=== PATIENT | male | born 1955 | race Caucasian/White ===

== ENCOUNTER 2019-04-12 11:16 | Inpatient (IN) | payer OTHER ==
[~2019-04-12] VITALS: Ht 167.6 cm; Wt 70.5 kg
--- NOTE | ~2019-04-12 | EKG ---
[place], [place] ELECTROCARDIOGRAM REPORT NAME: SANDEEP RODRÍGUEZ UNIT #: [id number] ROOM: 411 DOCTOR: MITCH DRAFT REPORT BIRTHDATE: [birth year] [facility] Test Date: 2019-04-12 Test Time: 11:48:53 Pat Name: SANDEEP RODRÍGUEZ Department: Room: 411 Gender: M Security Systems Administrator: : [id number] Requested By: TAHIRA BARAJAS Order Number: [id number] Reading MD: Donald Zabala MD Measurements Intervals [place] Rate: 58 P: -42 DC: 193 QRS: 39 QRSD: 146 T: 33 QT: 462 QTc: 454 Interpretive Statements Sinus rhythm Probable left atrial enlargement Right bundle branch block Electronically Signed On 04-13-2019 4:27:00 PDT by Donald Zabala MD CM:EKGRPT:ELECTROCARDIOGRAM REPORT [id number] TAHIRA VALENTIN DRAFT REPORT TAHIRA BARAJAS DO
[2019-04-12 11:21] VITALS: BP 158/98
[2019-04-12 11:36] LABS: BILIRUBIN NEGATIVE (NEGATIVE); BLOOD TRACE-INTACT (NEGATIVE); CLARITY SL CLOUDY (CLEAR); COLOR YELLOW (YELLOW); GLUCOSE NEGATIVE (NEGATIVE); KETONE NEGATIVE (NEGATIVE); LEUKO ESTERASE TRACE (NEGATIVE); NITRITE NEGATIVE (NEGATIVE); PH 6.5 (5.0-9.0); UROBILINOGEN 0.2 E.U./dl (0.2-1.0)
[2019-04-12 11:44] LABS: BASO % 0.6 % (0.0-1.0); HEMATOCRIT 41.8 % (42.0-52.0); HEMOGLOBIN 14.6 g/dl (14.0-18.0); LYMPH # 0.9 10*3/uL (1.3-4.4); LYMPH % 12.9 % (27.0-41.0); MEAN CELL VOLUME 99.1 fl (80.0-94.0); MEAN CORPUSCULAR HGB 34.6 pg (27.0-31.0); MEAN CORPUSCULAR HGB CONC 34.9 g/dl (33.0-37.0); MEAN PLATELET VOLUME 8.9 fl (9.6-12.3); MONO # 0.6 10*3/uL (0.1-1.0); MONO % 7.6 % (3.0-9.0); NEUT # 5.7 10*3/uL (2.3-7.9); NEUT % 78.6 % (47.0-73.0); PLATELET COUNT AUTOMATED 151 10*3/uL (130-400); RED BLOOD COUNT 4.22 10*6/uL (4.50-5.90); RED CELL DISTRI WIDTH 13.3 % (0-14.5); WHITE BLOOD COUNT 7.2 10*3/uL (4.8-10.8)
[2019-04-12 11:44] LABS: URINE AMPHETAMINES < 1000 (1000ng/ml); URINE BARBITURATES < 200 (200ng/ml); URINE BENZODIAZEPINES < 200 (200ng/ml); URINE CANNABINOIDS (THC) < 50 (50ng/ml); URINE COCAINE < 300 (300ng/ml); URINE METHADONE < 300 (300ng/ml); URINE OPIATES < 300 (300ng/ml)
[2019-04-12 11:45] LABS: URINE PHENCYCLIDINE < 25 (25ng/ml)
[2019-04-12 11:55] LABS: ACT PARTIAL THROMBO TIME 24.9 SECONDS (20.0-32.1); INTERNATIONAL NORM RATIO 0.9 (2.0-3.5)
[2019-04-12 12:00] VITALS: BP 156/94
[2019-04-12 12:00] LABS: ALBUMIN 4.2 gm/dl (3.1-4.5); ALKALINE PHOSPHATASE 69 U/L (45-117); BUN 9 mg/dl (7-24); CHLORIDE 102 mmol/L (98-107); CREATININE 0.93 mg/dL (0.70-1.30); POTASSIUM 4.1 mmol/L (3.5-5.1); SGOT/AST 61 IU/L (3-35); SGPT/ALT 43 U/L (12-78); SODIUM 135 mmol/L (136-145); TOTAL PROTEIN 8.2 gm/dL (6.4-8.2)
[2019-04-12 12:01] LABS: ACETAMINOPHEN (TYLENOL) < 5.0 ug/ml (10-30); ETHYL ALCOHOL < 3.0 mg/dl (<3); TROPONIN I < 0.015 ng/ml (<0.045)
--- NOTE | 2019-04-12 12:50 | NUR ---
BED ASSIGNED 411-2. DELAY IN TRANSPORT TO FLOOR DUE TO ONGOING INTERVIEW BY NEW [facility] STAFF BEHIND CLOSED DOOR.
[2019-04-12 13:00] VITALS: BP 161/85
--- NOTE | 2019-04-12 13:00 | NUR ---
A 63, admitted to [facility], under the services of ROVERTO Laurent DO with a diagnosis of ALCOHOL WITHDRAWL. Chief complaint is SENT FROM WORK WITH TREMORS D/T NO ALCOHOL INTAKE. Patient arrived via stretcher from ER. Monitor applied. Initial assessment completed. Vital signs taken and recorded. ROVERTO LAURENT DO notified of admission to the unit. Orders received. See assessment for past medical history, medications and allergies. Patient and/or family oriented to unit. [facility] visitation policy reviewed. TIFFANY RIVERA PEDIATRIC ASSOCIATE HERE TO TALK WITH PATIENT & RISHABHMOE ZAPIEN
[2019-04-12] MEDS ORDERED: METOPROLOL TART50 M1 PO (13:16)
--- NOTE | 2019-04-12 13:23 | NUR ---
Patient meets [facility] criteria. CIWA=24. Patient wants to attend AA meetings when he gets discharged from the hospital. JOEL Rick Clinical Pharmacy Coordinator
--- NOTE | 2019-04-12 15:45 | NUR ---
DOZING SINCE MEDICATED
[2019-04-12 16:00] VITALS: BP 118/56
--- NOTE | 2019-04-12 17:16 | NUR ---
ROUTINE PO ATIVAN & PRN BENTYL GIVEN. PT AROUSED EASILY BUT TREMORS STILL VISIBLE BUT LESS THAN ON ADMISSION
[2019-04-12 20:00] VITALS: BP 120/64
--- NOTE | 2019-04-12 23:19 | NUR ---
24 HR chart check completed.
[2019-04-13] VITALS: BP 124/70
--- NOTE | 2019-04-13 02:44 | NUR ---
PRN ROBAXIN AND VISTARIL GIVEN FOR PT COMPLAINTS OF MUSCLE ACHES AND ANXIETY. CALL LIGHT WITHIN REACH, WILL MONITOR
--- NOTE | 2019-04-13 03:30 | NUR ---
PRN MEDICATION APPEARS EFFECTIVE, PT SLEEPING
[2019-04-13 06:18] LABS: BASO % 0.8 % (0.0-1.0); EOS # 0.1 10*3/uL (0.0-0.4); EOS % 1.6 % (1.0-4.0); HEMATOCRIT 40.9 % (42.0-52.0); HEMOGLOBIN 13.8 g/dl (14.0-18.0); LYMPH # 2.2 10*3/uL (1.3-4.4); LYMPH % 43.2 % (27.0-41.0); MEAN CORPUSCULAR HGB 34.1 pg (27.0-31.0); MEAN CORPUSCULAR HGB CONC 33.7 g/dl (33.0-37.0); MEAN PLATELET VOLUME 9.6 fl (9.6-12.3); MONO # 0.5 10*3/uL (0.1-1.0); MONO % 8.7 % (3.0-9.0); NEUT # 2.3 10*3/uL (2.3-7.9); NEUT % 45.3 % (47.0-73.0); PLATELET COUNT AUTOMATED 139 10*3/uL (130-400); RED BLOOD COUNT 4.05 10*6/uL (4.50-5.90); RED CELL DISTRI WIDTH 13.4 % (0-14.5); WHITE BLOOD COUNT 5.2 10*3/uL (4.8-10.8)
[2019-04-13 06:55] LABS: CHLORIDE 105 mmol/L (98-107); POTASSIUM 3.7 mmol/L (3.5-5.1); SODIUM 139 mmol/L (136-145)
[2019-04-13 07:08] LABS: ALBUMIN 3.3 gm/dl (3.1-4.5); ALKALINE PHOSPHATASE 60 U/L (45-117); BUN 10 mg/dl (7-24); CHOLESTEROL 185 mg/dL (<200); FREE T4 0.84 ng/dl (0.76-1.46); HDL CHOLESTEROL 87 mg/dl (40-60); LDL CHOLESTEROL 88 mg/dL (9-159); PHOSPHOROUS 3.7 mg/dL (2.5-4.9); SGOT/AST 39 IU/L (3-35); SGPT/ALT 33 U/L (12-78); TOTAL PROTEIN 6.8 gm/dL (6.4-8.2); TRIGLYCERIDES 49 mg/dl (<150); VLDL CHOLESTEROL 10 mg/dL (6-40)
[2019-04-13 08:00] VITALS: BP 142/78
--- NOTE | 2019-04-13 10:55 | NUR ---
PT REQUESTED AND WAS MEDICATED WITH NICOTROL INHALER. CALL LIGHT IN REACH. WILL MONITOR
[2019-04-13 12:00] VITALS: BP 127/78
--- NOTE | 2019-04-13 12:41 | NUR ---
[place] STAFF SPOKE WITH PATIENT ABOUT REFERRAL OPTIONS. PATIENT AGREED ON COUNSELING. PATIENT STATED THAT HE WOULD LIKE TO GO TO [facility] IN [place] FOR HIS AFTERCARE PLAN. [place] STAFF WILL SET UP INITIAL APPOINTMENT FOR HIM. [place] STAFF WILL FOLLOW BACK UP WITH PATIENT. TEX GOLDBERG BA, PASSENGER BRAKEMAN
--- NOTE | 2019-04-13 13:12 | NUR ---
PATIENT'S APPOINTMENT FOR [facility] IN [place] IS SCHEDULED FOR April AT 5PM. [place] STAFF WILL REVIEW APPOINTMENT TIME WITH PATIENT. TEX GOLDBERG BA,INSTRUCTIONAL DESIGN TECHNOLOGIST
--- NOTE | 2019-04-13 13:16 | NUR ---
PT REQUESTED AND WAS MEDICATED WITH ROBAXIN FOR C/O MUSCLE ACHES AND VISTIRIL FOR C/O ANXIETY. CALL LIGHT IN REACH. WILL MONITOR
--- NOTE | 2019-04-13 13:51 | NUR ---
PT REQUESTED NICOINE GUM. THIS NURSE NOTIFIED PT THAT ONLY ONE NICOTINE PRODUCT CAN BE USED AT A TIME. PT STATES UNDERSTANDING AND REQUESTS THE GUM. NICOTINE INHALER AND CARTRIDGES COLLECTED AND PLACE DIN LOCKED WALLAROO. NICTINE GUM GIVEN PER REQUEST/ORDERS. CALL LIGHT IN REACH. WILL MONITOR.
[2019-04-13 16:00] VITALS: BP 160/78
[2019-04-13 20:00] VITALS: BP 177/85
[2019-04-14] VITALS: BP 176/88
--- NOTE | 2019-04-14 01:45 | NUR ---
IM GEODON GIVEN DUE TO PATIENT BECOMING INCREASINGLY AGITATED AND AGGRESSIVE BEHAVIOR. PATIENT WANDERING OUT TO THE HALLWAY AND REFUSING TO STAY IN ROOM.
--- NOTE | 2019-04-14 02:05 | NUR ---
CODE ARDEN CALLED. PATIENT BECOMING AGITATED AND REFUSING TO GET BACK INTO BED AFTER MULTIPLE ATTEMPTS. PATIENT UNSTEADY GAIT BECOMING INCREASINGLY WORSE. PATIENT USING VULGAR LANGUAGE TOWARD THE STAFF AND ATTEMPTING TO KICK AND HIT STAFF.
--- NOTE | 2019-04-14 02:19 | NUR ---
PATIENT PLACED IN SOFT WRIST RESTRAINTS TO PREVENT SELF HARM AND HARM TO OTHERS.
--- NOTE | 2019-04-14 02:25 | NUR ---
IV ATIVAN GIVEN FOR WORSENING TREMORS AND AGITATION. WILL CONTINUE TO MONITOR AND REASSESS.
--- NOTE | 2019-04-14 03:18 | NUR ---
IV ATIVAN GIVEN FOR INCREASED AGITATION AND TREMORS. WILL CONTINUE TO MONITOR AND REASSESS.
--- NOTE | 2019-04-14 03:19 | NUR ---
VISUAL AND AUDITORY HALLUCINATIONS NOTED UPON ASSESSMENT.
--- NOTE | 2019-04-14 05:20 | NUR ---
IV ATIVAN GIVEN. PATIENT APPEARS TO BE SLIGHTLY IMPROVING. TREMULOUS BEHAVIOR HAS DIMINISHED SLIGHTLY. WILL CONTINUE TO MONITOR.
--- NOTE | 2019-04-14 07:15 | NUR ---
PT MEDICATED WITH ATIVAN IV FOR AGITATION AND HALLUCINATIONS. PT RESTRAINED PER ORDERS. FINE TREMOR NOTED. 1:1 SITTER AT BEDSIDE. RESP EASY AND NONLABORED. WILL MONITOR
--- NOTE | 2019-04-14 08:11 | NUR ---
1MG OF IV ATIVAN GIVEN FOR AGGITATION AND ANGRESSION,HALLUCINATIONS
--- NOTE | 2019-04-14 08:32 | NUR ---
PATIENT CLEANED UP AND PULLED UP IN BED. ATIVAN GIVEN. PATIENT IS STILL AGITATED AND HALLUCINATING REACHING FOR THINGS THAT ARE NOT THERE. SKIN IS CLEAN DRY AND INTACT. PATIENT IS RESTING INTERMITTENTLY FOR SHORT PERIODS. CONTINUE TO MONITOR.
--- NOTE | 2019-04-14 09:50 | NUR ---
24 HR chart check completed.
--- NOTE | 2019-04-14 10:09 | NUR ---
ORDERS RECEIVED TO TRANSFER TO ICU. PT TRANSPORTED WITH BELONGINGS. REPORT GIVEN TO JAMES CRM SPECIALIST. , ADIN CALLED AND NOTIFIED OF PT STATUS AND TRANSFER TO ICU. SHE STATES UNDERSTANDING.
--- NOTE | 2019-04-14 10:15 | NUR ---
Patient displaying withdrawal symptoms, including: irritability, anxiousness, restlessness and agitation, complicated by impulsive behavior. Patient scores a 5 on the withdrawal scale. Scheduled/PRN medications provided, doctor notified of patient's agitation and AMA potential. Will continue to monitor medication effectiveness.
--- NOTE | 2019-04-14 10:44 | NUR ---
Patient resting. Responding to scheduled medications with fewer complaints of pain and anxiety.
[2019-04-14 12:00] VITALS: BP 151/81
[2019-04-14 16:00] VITALS: BP 143/83
--- NOTE | 2019-04-14 19:30 | NUR ---
ASSUMED CARE OF PATIENT AT THIS TIME. PATIENT RESTING IN HIS BED, DISORIENTED. PATIENT'S VERBAL RESPONSES ARE SLURRED AND INAPPROPRIATE. DROWSY. VITAL SIGNS STABLE. BRADYCARDIC AT TIMES, PULSE OX 99%, BUT DESATS TO 85% WHILE SLEEPING AT TIMES. 1:1 SITFLAQUITO RAJPUT, AT PATIENT'S BEDSIDE. NO S/S OF DISTRESS AT THIS TIME. WITHIN VISION OF RN AT DESK.
[2019-04-14 19:59] VITALS: BP 147/80
--- NOTE | 2019-04-14 20:23 | NUR ---
PATIENT STILL IN 3PT RESTRAINTS. CIRCULATION ASSESSED. CAN FIT 2 FINGERS UNDER EACH RESTRAINT. REPOSITIONED. NO S/S OF DISTRESS. HEAD OF BED ELEVATED.
--- NOTE | 2019-04-14 21:14 | NUR ---
PT WAS INCONTINENT. COMPLETE BATH AND BED LINEN CHANGE DONE. PT VERY UNCOOPERATIVE AND TREMULOUS. IV ATIVAN ORDERED.
--- NOTE | 2019-04-14 22:22 | NUR ---
NICOTINE PATCH PLACED ON PATIENT'S LEFT SHOULDER AT THIS TIME PER 'S REQUEST.
--- NOTE | 2019-04-14 22:25 | NUR ---
IV ATIVAN EFFECTIVE. PATIENT RESTING COMFORTABLY ON HIS BACK IN BED. NO S/S OF DISTRESS. VITALS STABLE. WITHIN SIGHT OF NURSING STAFF. 1:1 AT BEDSIDE.
--- NOTE | 2019-04-14 23:34 | NUR ---
PATIENT DROWSY AND HARD TO AROUSE. HOLDING PHENOBARBITAL AT THIS TIME.
[2019-04-15 00:09] VITALS: BP 151/79
--- NOTE | 2019-04-15 02:27 | NUR ---
PATIENT RESTING IN BED. NO S/S OF DISTRESS. PATIENT COUGHING ON OCCASION. 1:1 AT BEDSIDE. WITHIN SIGHT OF NURSE.
[2019-04-15 03:47] VITALS: BP 122/62
--- NOTE | 2019-04-15 04:36 | NUR ---
PATIENT'S BRIEF CHANGED FOR URINE. TOLERATED WELL. PATIENT STILL DISORIENTED. REPOSITIONED FOR COMFORT WITH HOB AT 30 DEGREES. WITHIN SIGHT OF NURSING, 1:1 AT BEDSIDE.
--- NOTE | 2019-04-15 04:40 | NUR ---
CALLED DR KAPLAN TO LET HIM KNOW THAT I HELD THE PATIET'S PHENOBARBITAL LAST NIGHT AT MIDNIGHT AND HIS LOPRESSOR AT 2200 DUE TO LOW HEART RATE IN THE 40'S. IT WAS DOCUMENTED ON THE EMAR WELL. WANTED TO UPDATE HIM THAT THE PATIENT'S HEART RATE WAS STILL IN THE 40'S WITH A NEW DOSE OF PHENO COMING UP AT 0600. DR KAPLAN STATES TO HOLD THAT DOSE WELL D/T THE BRADYCARDIA. ALSO EXPRESSED TO HIM THAT THE PATIENT TOOK A SIP OF AUTUMN GONZÁLEZ THIS AM AND ASPIRATED IT INTO HIS LUNGS. IMMEDIATELY COUGHING. STATES HE WILL RELAY THAT TO THE DAY TEAM AND WILL "FIGURE THIS OUT." PATIENT IS CURRENTLY REST IN HIS BED, RESP EASY. PATIENT NOT COOPERATING WHEN INSTRUCTED TO TAKE A DEEP BREATH, SO LUNGS SOUNDS CANNOT BE DETERMINED ACCURATELY. PULSE OX SITTING AT 96% ON RA. NO S/S OF DISTRESS. REQUESTED THAT MAYBE WE SHOULD EVALUATE THE PATIENT'S SWALLOWING WITH A SPEECH CONSULT. WILL PASS THIS INFORMATION ON TO DAYLIGHT NURSE DURING SHIFT CHANGE. PATIENT WITHIN SIGHT OF RN AT DESK AND 1:1 AT BEDSIDE.
[2019-04-15 08:00] VITALS: BP 130/88
--- NOTE | 2019-04-15 10:00 | NUR ---
PHENOBARBITOL HELD R/T HR OF 45 THAT WOULD DECREASE TO 35 WHEN IN A DEEP SLEEP.
[2019-04-15 12:00] VITALS: BP 136/67
--- NOTE | 2019-04-15 13:00 | NUR ---
PT HAS IMPROVED GREATLY SINCE YESTERDAY. HE IS NOW ORIENTED BUT IS STILL SLEEPING ALOT.
--- NOTE | 2019-04-15 15:00 | NUR ---
PT ASSISTED UP TO CHAIR BY 2 ASSISTS PER HIS REQUEST. PT IS WEAK AND IS AWARE OF THIS BUT TOLERATED WELL.
[2019-04-15 16:00] VITALS: BP 111/75
--- NOTE | 2019-04-15 17:00 | NUR ---
PT IS COMPLETELY A&A X 3. HE IS SITTING UP IN CHAIR WITH EYE GLASSES ON AND READING NEWSPAPER WITH AT BEDSIDE. HE IS ALSO HAVING A MEANINGFUL CONVERSATION WITH HER.
[2019-04-15 20:00] VITALS: BP 119/76
--- NOTE | 2019-04-15 20:09 | NUR ---
1929 SITTING UP IN RECLINER CHAIR AT THE BEDSIDE. ALERT AND ORIENTED, NO DISTRESS NOTED. HEP LOCK INTACT. PULSE OX 99% ON RA. NO C/O'S VOICED.
--- NOTE | 2019-04-15 22:07 | NUR ---
2130 REMAINS IN RECLINER. ATIVAN 1MG PO GIVEN FOR REST. WILL MONITOR.
--- NOTE | 2019-04-15 23:32 | NUR ---
0 BACK TO BED. WEAK AND UNSTEADY. 2315 PHENOBARB GIVEN EARLY. DID NOT HAVE ANY DOSES TODAY
[2019-04-16] VITALS: BP 145/82
--- NOTE | 2019-04-16 00:17 | NUR ---
RESTING IN BED WITH EYES CLOSED. APPEARS TO BE SLEEPING. NO DISTRESS NOTED.
[2019-04-16 04:00] VITALS: BP 125/61
--- NOTE | 2019-04-16 04:15 | NUR ---
REMAINS SLEEPING WITHOUT DISTRESS. HR IN THE 40'S. PT IS ASYMPTOMATIC.
--- NOTE | 2019-04-16 06:04 | NUR ---
SLEPT WELL THIS SHIFT. REMAINS WITHOUT C/O'S. CONDITION GUARDED.
[2019-04-16 06:43] LABS: BASO # 0.1 10*3/uL (0.0-0.1); BASO % 0.7 % (0.0-1.0); EOS # 0.1 10*3/uL (0.0-0.4); EOS % 1.6 % (1.0-4.0); HEMATOCRIT 43.4 % (42.0-52.0); HEMOGLOBIN 14.4 g/dl (14.0-18.0); LYMPH # 3.2 10*3/uL (1.3-4.4); LYMPH % 39.4 % (27.0-41.0); MEAN CELL VOLUME 102.6 fl (80.0-94.0); MEAN CORPUSCULAR HGB CONC 33.2 g/dl (33.0-37.0); MEAN PLATELET VOLUME 9.7 fl (9.6-12.3); MONO % 12.4 % (3.0-9.0); NEUT # 3.7 10*3/uL (2.3-7.9); NEUT % 45.7 % (47.0-73.0); PLATELET COUNT AUTOMATED 155 10*3/uL (130-400); RED BLOOD COUNT 4.23 10*6/uL (4.50-5.90); RED CELL DISTRI WIDTH 12.9 % (0-14.5); WHITE BLOOD COUNT 8.1 10*3/uL (4.8-10.8)
[2019-04-16 07:05] LABS: ALBUMIN 3.5 gm/dl (3.1-4.5); ALKALINE PHOSPHATASE 63 U/L (45-117); BUN 11 mg/dl (7-24); CHLORIDE 103 mmol/L (98-107); CREATININE 0.91 mg/dL (0.70-1.30); PHOSPHOROUS 4.6 mg/dL (2.5-4.9); SGOT/AST 35 IU/L (3-35); SGPT/ALT 35 U/L (12-78); SODIUM 134 mmol/L (136-145); TOTAL PROTEIN 7.2 gm/dL (6.4-8.2)
--- NOTE | 2019-04-16 07:32 | NUR ---
24 HR chart check completed.
[2019-04-16 08:00] VITALS: BP 140/80
[2019-04-16 12:00] VITALS: BP 142/84
[2019-04-16 16:00] VITALS: BP 103/58
--- NOTE | 2019-04-16 17:19 | NUR ---
AMBULATED PT THRU HALLS TWICE TODAY PER HIS REQUEST WITH MINIMAL ASSIST. PT TOLERATED WELL AND REMAINS ALERT AND ORIENTED.
--- NOTE | 2019-04-16 19:21 | NUR ---
CHART CHECK COMPLETE. PT SITTING IN CHAIR, WATCHING TV. CALL LIGHT IN REACH.
[2019-04-16 20:00] VITALS: BP 137/67
--- NOTE | 2019-04-16 21:57 | NUR ---
ATIVAN GIVEN AT 2020 PER PT REQUEST FOR SHAKINESS (FELT, NOT NOTED) EFFECTIVE...PT SLEEPING WITH EVEN, UNLABORED RESPIRATIONS. BODY RELAXED.
[2019-04-17 00:18] VITALS: BP 124/60
--- NOTE | 2019-04-17 00:19 | NUR ---
PT UP TO SIDE OF BED TO VOID IN URINAL. ASSESSMENT AND VS TAKEN.
[2019-04-17 04:00] VITALS: BP 134/71
[2019-04-17 05:13] LABS: BUN 13 mg/dl (7-24); CHLORIDE 102 mmol/L (98-107); CREATININE 0.92 mg/dL (0.70-1.30); POTASSIUM 4.6 mmol/L (3.5-5.1); SODIUM 138 mmol/L (136-145)
[2019-04-17 08:00] VITALS: BP 132/81
[2019-04-17 12:00] VITALS: BP 143/83
--- NOTE | 2019-04-17 15:03 | NUR ---
PT DISCHARGED AT THIS TIME WITH TO HOME.
--- NOTE | 2019-04-17 15:03 | NUR ---
Discharge instructions reviewed with patient/family. Patient receptive and verbalizes understanding. Follow-up care arranged. Written instructions given to patient/family. CHARLES BEARDEN
== END 2019-04-17 15:03 | disposition home or self-care (01) | DRG 897 ==
LOC: ED 11:16 → ICCU 12:23 → 4E 12:23 → EDHOLD 12:23 → 4E 13:03 → ICCU 04-14 10:12
PROVIDERS: Family Medicine; Internal Medicine; Registered Nurse; ADMIT Internal Medicine
DX: F10.231 Alcohol dependence with withdrawal delirium (principal); E87.1 Hypo-osmolality and hyponatremia; I10 Essential (primary) hypertension; F17.210 Nicotine dependence, cigarettes, uncomplicated; D53.9 Nutritional anemia, unspecified; R74.0 Nonspecific elevation of levels of transaminase and lactic acid dehydrogenase [LDH]; E66.3 Overweight; R73.9 Hyperglycemia, unspecified; E83.41 Hypermagnesemia; Z68.25 Body mass index [BMI] 25.0-25.9, adult